=== PATIENT | male | born 2000 | race Caucasian/White ===

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

== ENCOUNTER → 2021-06-20 09:59 | Outpatient (BNVA) | payer OTHER, SELFPAY | PROVIDERS: Family Provider Family Medicine; PCP Family Medicine; Visit Provider Registered Nurse Neonatal Intensive Care | DX: J02.0 Streptococcal pharyngitis (principal) | CPT/HCPCS: 87880 ==

== ENCOUNTER 2021-06-26 10:55 | Emergency (ER) | payer OTHER, SELFPAY ==
[2021-06-26 11:08] VITALS: BP 142/64; PULSE 59; RESP 18; TEMP 36.9; O2SAT 97; BMI 26.2
--- NOTE | 2021-06-26 11:13 | ED_ITS ---
HPI - Eye Problem General: Chief complaint: Eye Problems Stated complaint: Red eyes and dry Time Seen by Provider: 06/26/21 11:13 Source: patient Mode of arrival: ambulatory Limitations: no limitations History of Present Illness: 21-year-old male presents to the ER today for bilateral eye redness x2 days. Patient reports last weekend he was diagnosed with strep and started on antibiotics. Yesterday patient woke up and his eyes were red and then this morning when he woke up it seemed to be worse. Patient denies any symptoms associate with redness. Denies itchy eyes or watery eyes. Denies any vision changes. Denies any runny nose or stuffy nose. Denies any cough. Reports his sore throat is improved. Patient reports he feels completely fine other than the redness. Denies any dryness or matting noted of the morning. Review of Systems General: Reports: 10 or more systems reviewed and unremarkable except in HPI and below PFSH ED PFSH: Medical History Pilonidal sinus without abscess Surgical History History of excision of pilonidal cyst History of oral surgery Family History Denies family history of Diabetes Chronic kidney disease (CKD) Lung disease Cancer Stroke Social History Smoking and tobacco status: never smoked Alcohol intake: never Household members: family Marital status: Current occupational status: employed History of recent travel: No Physical Exam Const: COMMON NORMALS: no acute distress, average body habitus and patient oriented x3 HENMT: COMMON NORMALS: normocephalic, atraumatic, external ears normal, TM's normal bilaterally, Normal external nose present, Normal nasal mucous membranes and turbinates present and moist oral mucous membranes HEAD & SCALP: normocephalic and atraumatic NOSE: Normal external nose present and Normal nasal mucous membranes and turbinates present EXTERNAL EAR: Yes external ears normal TYMPANIC MEMBRANE: TM's normal bilaterally THROAT: posterior oropharynx normal and tonsils normal Eye: CONJUNCTIVA: Yes conjunctival abnormal positive bilateral (significant erythema noted) Neck/C-Spine: COMMON NORMALS: full ROM and no lymphadenopathy Resp: COMMON NORMALS: normal respiratory effort, No retractions and clear to auscultation bilaterally AUSCULTATION: clear to auscultation bilaterally Cardio: COMMON NORMALS: regular rate, regular rhythm and No murmurs present (Cardio) RATE: regular rate RHYTHM: regular rhythm Extremity: COMMON NORMALS: full ROM Neuro: COMMON NORMALS: patient oriented x3 Psych: COMMON NORMALS: mental status grossly normal, Normal thought process present and cooperative THOUGHT PROCESS: Normal thought process present Skin: COMMON NORMALS: no rashes or lesions noted GENERAL SKIN EXAM: no rashes or lesions noted Course ED course: 21-year-old male presents to the ER for bilateral eye redness x2 days. Patient denies any other symptoms associated with the redness. Denies drainage or discharge. Patient did have a recent strep infection but that has improved. He is still on antibiotics for that. On exam, there does appear to be significant conjunctival injection however patient has no other associated symptoms. No drainage or crusting noted. Visual acuity is normal. Vital Signs: Vital signs: Vital Signs Temperature 98.5 F 06/26/21 11:08 Pulse Rate 62 06/26/21 11:33 Respiratory Rate 18 06/26/21 11:08 Blood Pressure 126/75 06/26/21 11:33 Pulse Oximetry 97 06/26/21 11:08 MDM - Eye Problem Medical Decision Making 21-year-old male presents to the ER for bilateral eye redness x2 days. Patient denies any other symptoms associated with the redness. Denies drainage or discharge. Patient did have a recent strep infection but that has improved. He is still on antibiotics for that. On exam, there does appear to be significant conjunctival injection however patient has no other associated symptoms. No drainage or crusting noted. Visual acuity is normal. Discussed this with patient. This is likely secondary to recent infection. We will go ahead and treat with Gentac eyedrops at this time. Patient should finish his antibiotics he was given at home. Recommend warm moist compresses for any irritation. Follow-up with PCP in 2 to 3 days if no improvement. Return to the ER with new or worsening symptoms. Patient verbalized understanding and is in agreement with the treatment plan. Critical Care Time Critical Care Time: Critical Care Time: No Discharge Plan Discharge Patient Disposition: Home Clinical Impression: Conjunctivitis Qualifiers: Conjunctivitis type: acute Acute conjunctivitis type: unspecified Laterality: bilateral Qualified Code(s): H10.33 - Unspecified acute conjunctivitis, bilateral Condition: Stable Prescriptions: New gentamicin 0.3 % drops 1 drp ophthalmic (eye) Q6H 5 Days Qty: 5 0RF No Action clobetasol 0.05 % ointment 1 applic TOPICAL BID 14 Days Qty: 60 1RF Rx Instructions: for severe lesions-Apply to affected areas on arms twice daily for 2 weeks triamcinolone acetonide 0.1 % ointment 1 applic TOPICAL BID Qty: 80 1RF Rx Instructions: Apply twice daily to affected area on arms prn for moderate areas no more than 2 wks/mo tacrolimus 0.1 % ointment 1 applic topical BID Qty: 60 3RF Rx Instructions: To arms, face as needed for mild areas amoxicillin 500 mg capsule 500 mg PO BID 10 Days Qty: 20 0RF Discharge Orders: Discharge ED (Routine); Ordered 06/26/21 Ordered By: Jessica Harry Referrals: Braulio Ambrose MD [Primary Care Provider] - Discharge Diet: Usual diet Discharge Activity: Resume usual activity Patient Instructions: Opioid Safety Activity Restrictions/Additional Instructions: Use eyedrops as prescribed. Finish antibiotics as previously prescribed. Follow-up with PCP in 3 to 5 days if no improvement. Return to the ER with new or worsening symptoms. 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
[2021-06-26 11:33] VITALS: BP 126/75; PULSE 62
== END 2021-06-26 11:34 | disposition home or self-care (01) ==
PROVIDERS: Emergency Provider Physician Assistant; PCP Family Medicine
DX: H10.33 Unspecified acute conjunctivitis, bilateral (principal); J02.0 Streptococcal pharyngitis; Z79.2 Long term (current) use of antibiotics
CPT/HCPCS: 99283

== ENCOUNTER → 2022-06-22 12:32 | Outpatient (BNVA) | payer OTHER, SELFPAY | PROVIDERS: PCP Family Medicine; Visit Provider Nurse Practitioner | DX: J02.9 Acute pharyngitis, unspecified (principal) | CPT/HCPCS: 87880 ==